=== PATIENT | female | born 1980 | race Caucasian/White ===

== ENCOUNTER → 2017-05-05 | Outpatient (CLI) | payer BC ==
[~2017-05-05] MED LIST: APAP80 MG/0.8 PO; CALCIUM-500 5001 CTB PO; CARAFATE 1GM1 G PO; FLEXERIL 1010 MG/TAB PO; LORTAB 5/500 501 TAB PO; LORTAB 7.5/5001 TAB PO; MIDOL; MULTIPLE VITAMI1 TA5 PO; NAPROSYN500 MG PO; NORCO 325 MG-51 TAB PO; PERCOCET 325 MG1 TA2 PO; PERCOCET 5/321 UDTAB PO; PHENERGAN 25 TA25 MG PO; PHENERGAN25 MG RC; PRILOTC PO; STOOL SOFTENER100 M2 PO; TYLENOL 500MG500 MG PO; ZOFRAN 4MG T4 MG/TAB PO
== END ==
LOC: COL.RAD 12:06
DX: M75.111 Incomplete rotator cuff tear or rupture of right shoulder, not specified as traumatic (principal); G89.29 Other chronic pain

== ENCOUNTER 2019-02-18 20:02 | Emergency (ER) | payer OTHER, BC ==
[~2019-02-18] VITALS: Ht 162.6 cm; Wt 97.7 kg
[2019-02-18 20:12] VITALS: BP 148/90; TEMP 98.4
[2019-02-18] MEDS ORDERED: PERCOCET 325 MG1 TA2 PO (22:16)
[2019-02-18] MEDS ORDERED: ZOFRAN ODT4 MG PO (22:26)
[2019-02-18 22:35] VITALS: PULSE 79
== END 2019-02-18 22:35 | disposition home or self-care (01) ==
LOC: COL.ER 20:02
DX: S70.11XA Contusion of right thigh, initial encounter (principal); W20.8XXA Other cause of strike by thrown, projected or falling object, initial encounter; Y92.69 Other specified industrial and construction area as the place of occurrence of the external cause; Y99.0 Civilian activity done for income or pay

== ENCOUNTER → 2020-05-30 | Outpatient (CLI) | payer BC ==
[~2020-05-30] MED LIST changes: +ZOFRAN ODT4 MG PO
== END ==
LOC: COL.CARD 11:07
DX: R00.2 Palpitations (principal); R06.00 Dyspnea, unspecified; Z86.19 Personal history of other infectious and parasitic diseases

== ENCOUNTER → 2022-10-21 | Outpatient (CLI) | payer OTHER | LOC: MC.RAD 10:42 | DX: Z12.31 Encounter for screening mammogram for malignant neoplasm of breast (principal) ==

== ENCOUNTER 2024-03-25 15:10 | Emergency (ER) | payer BC ==
[~2024-03-25] VITALS: Ht 162.6 cm; Wt 105.0 kg
[2024-03-25 15:13] VITALS: TEMP 98.7
[2024-03-25 16:04] LABS: BASO # 0.1 K/mm3 (0.0-0.2); BASO % 0.6 % (0.0-2.0); EOS # 0.3 K/mm3 (0.0-0.7); EOS % 2.6 % (0.0-4.0); GRAN # 7.1 K/mm3 (1.4-6.5); HEMOGLOBIN 11.5 g/dl (12.5-16.0); LYMPH # 2.3 K/mm3 (1.2-3.4); LYMPH % 21.4 % (20.0-51.0); MEAN CELL VOLUME 82 fl (80.0-100.0); MEAN CORPUSCULAR HEMOGLOBIN 26 pg (27-31); MEAN CORPUSCULAR HGB CONC 32 g/dl (33.0-37.0); MEAN PLATELET VOLUME 11.6 fl (7.4-10.4); MONO # 0.8 K/mm3 (0.1-0.6); MONO % 7.8 % (1.7-9.3); PLATELET COUNT 268 K/mm3 (130-400); RED BLOOD COUNT 4.39 M/mm3 (4.10-5.30); REDCELL DISTRIBUTION WIDTH-CV 14.5 % (11.5-14.5)
[2024-03-25 16:05] LABS: HEMATOCRIT 36.1 % (37.0-47.0)
[2024-03-25] MEDS ORDERED: Iohexol 300 - 100 ML VIAL IV ONE (16:17)
[2024-03-25] MEDS ORDERED: NS 50 ML IV SCH (16:19)
[2024-03-25 16:56] LABS: ALBUMIN 3.7 g/dL (3.5-5.0); BILIRUBIN,TOTAL 0.3 mg/dL (0.2-1.2); CALCIUM 9.2 mg/dL (8.4-10.2); CREATININE, serum 0.75 mg/dL (0.57-1.11); POTASSIUM 3.9 mEq/L (3.5-4.5); TOTAL PROTEIN 6.9 g/dl (6.2-8.1)
[2024-03-25 17:01] LABS: TROPONIN-I 0.014 ng/mL (0.00-0.033)
[2024-03-25 19:24] VITALS: BP 135/79; PULSE 98
== END 2024-03-25 19:27 | disposition home or self-care (01) ==
LOC: COL.ER 15:10
PROVIDERS: Personal Emergency Response Attendant
DX: R06.00 Dyspnea, unspecified (principal); R07.9 Chest pain, unspecified; Z87.19 Personal history of other diseases of the digestive system; Z87.442 Personal history of urinary calculi; Z79.899 Other long term (current) drug therapy
CPT/HCPCS: Q9967